=== PATIENT | male | born 1965 | race Two or more races ===

== ENCOUNTER 2018-09-07 06:15 | Emergency (ER) ==
[~2018-09-07] VITALS: Ht 167.6 cm; Wt 87.5 kg
[2018-09-07 06:30] VITALS: BP 164/95
[2018-09-07] MEDS ORDERED: LIDOCAINE 1%-EPI 1:100,000 20 ML VIAL ONE (06:40)
--- NOTE | 2018-09-07 06:47 | NUR ---
INCISION AND DRAINAGE DONE BY DR. GONZALEZ.
--- NOTE | 2018-09-07 07:15 | NUR ---
Patient discharged to home in stable condition. Written and verbal after care instructions given. Patient verbalizes understanding of instruction.
== END 2018-09-07 07:17 | disposition home or self-care (01) ==
LOC: ER 06:17
DX: L02.11 Cutaneous abscess of neck (principal); I10 Essential (primary) hypertension; E11.9 Type 2 diabetes mellitus without complications; Z98.890 Other specified postprocedural states
CPT/HCPCS: 10060; 99283; A6403; J3490